=== PATIENT | male | born 1955 | race American Indian/Alaskan Native ===

== ENCOUNTER 2017-04-17 18:21 | Inpatient (IN) | payer MEDICAID ==
[2017-04-17 18:26] VITALS: BMI 20.6
--- NOTE | 2017-04-17 19:32 | C.PDOC ---
History Of Present Illness A 62 y/o male with a Hx of heroin abuse for 15 years, comes in for heroin detox. Pt notes his last use was today. Pt denies suicidal or homicidal ideation , fever, chills, nausea, vomiting, or any other complaints. Time Seen by Provider: 04/17/17 19:29 Chief Complaint (Nursing): Substance Abuse History Per: Patient History/Exam Limitations: intoxication Onset/Duration Of Symptoms: Hrs Current Symptoms Are (Timing): Still Present Suicide/Self Injury Attempted (Context): None Modifying Factor(s): Other (Heroin) Severity: Mild Associated Symptoms: denies: Suicidal Thoughts, Suicidal Plan Involuntary Hold By: None Recent travel outside of the [place]: No Additional History Per: Patient Past Medical History Reviewed: Historical Data, Nursing Documentation, Vital Signs Vital Signs: Last Vital Signs Temp 98.6 F 04/17/17 18:29 Pulse 68 04/17/17 18:29 Resp 18 04/17/17 18:29 BP 122/86 04/17/17 18:29 Pulse Ox 100 04/17/17 21:10 - Medical History PMH: HTN Denies: Diabetes, Hepatitis, HIV, Seizures, Sexually Transmitted Disease Surgical History: Cholecystectomy Family History: States: Unknown Family Hx - Social History Hx Alcohol Use: No Hx Substance Use: Yes - Immunization History Hx Tetanus Toxoid Vaccination: No Hx Influenza Vaccination: No Hx Pneumococcal Vaccination: No Review Of Systems Except As Marked, All Systems Reviewed And Found Negative. Constitutional: Positive for: Other (Heroin intoxication). Negative for: Fever , Chills Gastrointestinal: Negative for: Nausea, Vomiting Psych: Negative for: Suicidal ideation, Other (Homicidal ideation) Physical Exam - Physical Exam Appears: Non-toxic, No Acute Distress Skin: Warm, Dry Head: Atraumatic, Normacephalic Eye(s): bilateral: Normal Inspection, PERRL, EOMI Oral Mucosa: Moist Throat: Normal, No Exudate Neck: Supple Chest: Symmetrical Cardiovascular: Rhythm Regular, No Murmur Respiratory: Normal Breath Sounds, No Accessory Muscle Use, No Rales, No Rhonchi , No Wheezing Gastrointestinal/Abdominal: Soft, No Tenderness Neurological/Psych: Oriented x3, Normal Speech, Other (No focal deficit) Gait: Steady ED Course And Treatment - Laboratory Results Result Diagrams: 04/17/17 19:41 04/17/17 19:41 O2 Sat by Pulse Oximetry: 100 (RA) Pulse Ox Interpretation: Normal Medical Decision Making Medical Decision Making: Impression: 62 y/o male here for heroin detox last use today Plans: Blood labs, UA, reassess Disposition Discussed With : Shyanne Ledbetter Doctor Will See Patient In The: Hospital Counseled Patient/Family Regarding: Diagnosis - Disposition Disposition: HOSPITALIZED Disposition Time: 21:09 Condition: STABLE - POA Present On Arrival: None - Clinical Impression Clinical Impression: Moderate opioid use disorder - Scribe Statement The provider has reviewed the documentation as recorded by the Scribe Daysi huynh All medical record entries made by the Nayeliibe were at my direction and personally dictated by me. I have reviewed the chart and agree that the record accurately reflects my personal performance of the history, physical exam, medical decision making, and the department course for this patient. I have also personally directed, reviewed, and agree with the discharge instructions and disposition.
[2017-04-17 19:47] LABS: BASO # 0.1 K/uL (0.0-0.2); EOS # 0.2 K/uL (0.0-0.7); EOS % 3.9 % (0.0-4.0); HEMATOCRIT 37.3 % (35.0-51.0); LYMPH # 1.9 K/uL (1.0-4.3); LYMPH % 36.2 % (20.0-40.0); MEAN CELL VOLUME 85.6 fL (80.0-94.0); MEAN CORPUSCULAR HEMOGLOBIN 28.1 pg (27.0-31.0); MEAN CORPUSCULAR HGB CONC 32.8 g/dL (33.0-37.0); MEAN PLATELET VOLUME 9.1 fL (7.2-11.7); MONO # 0.6 K/uL (0.0-0.8); MONO % 10.5 % (0.0-10.0); RED CELL DISTRIBUTION WIDTH 15.3 % (11.5-14.5); WHITE BLOOD COUNT 5.3 K/uL (4.8-10.8)
[2017-04-17 19:54] LABS: RBC URINE 18 /hpf (0-3); URINE BACTERIA RARE (<OCC); URINE BILIRUBIN NEGATIVE (NEGATIVE); URINE BLOOD NEGATIVE (NEGATIVE); URINE CALCIUM OXALATE CRYSTALS OCC /hpf (<OCC); URINE COLOR Yellow (YELLOW); URINE GLUCOSE (UA) NORMAL (Normal); URINE KETONE NEGATIVE (NEGATIVE); URINE LEUKOCYTE ESTERASE 1+ Leu/uL (Negative); URINE PROTEIN 1+ mg/dL (NEGATIVE); URINE UROBILINOGEN NORMAL mg/dL (0.2-1.0); WBC URINE 32 /hpf (0-5)
[2017-04-17 19:57] LABS: CHLORIDE 95 mmol/L (98-107); POTASSIUM 4.2 mmol/L (3.6-5.2); SODIUM 139 mmol/L (132-148)
[2017-04-17 19:59] LABS: ALB/GLOB RATIO 1.5 (1.0-2.1); ALKALINE PHOSPHATASE 220 U/L (38-126); AST/SGOT 82 U/L (17-59); BILIRUBIN,TOTAL 0.6 mg/dL (0.2-1.3); BLOOD UREA NITROGEN 24 mg/dL (9-20); CARBON DIOXIDE 34 mmol/L (22-30); GFR AFRICAN-AMERICAN > 60; GLUCOSE,RANDOM 165 mg/dL (75-110); TOTAL PROTEIN 8.2 g/dL (6.3-8.3)
[2017-04-17 20:00] LABS: ALCOHOL SERUM < 10 mg/dl (0-10); ALT/SGPT 85 U/L (21-72); CALCIUM 9.6 mg/dl (8.6-10.4)
[2017-04-18] MEDS ORDERED: Aluminum Hydroxide/Magnesium Hydroxide Susp (30 mL) PO PRN (00:51)
--- NOTE | 2017-04-18 12:21 | PCM.PSYCH ---
Initial Psychiatric Evaluation - Initial Psychiatric Evaluation Type of Admission: Voluntary Legal Status: Capacity Chief Complaint (in patient's own words): "I had to stop this" History of Present Illness and Precipitating Events: The patient is seen, chart reviewed and case discussed. This is a 62-year-old -[place] male, single with no child, on disability because of an injury 20 years ago, lives with girlfriend in [place]. The patient reports using 6 bags of heroin intranasally. He started about 20 years ago and used on and off. He was in detox twice but never went to any rehabilitation. He was recently in detox in [facility] in [facility] but signed out AMA after 1 day because he didn't like the program. He took methadone there for 1 day, 25 mg. He says he used Suboxone many years ago from a doctor. He also abuse cocaine and marijuana many years ago, currently clean. He denies alcohol and other drug use but smokes half pack per day cigarettes. He also denies psychiatric symptoms. Past psych history: Denies Family psych history: His brother used marijuana. Medical history: Gallbladder removed. His LFTs are high and he doesn't know if he has hepatitis C. It will be checked Current Medications: Active Medications Generic Name Dose Route Start Last Admin Trade Name Freq PRN Reason Stop Dose Admin Al Hydrox/Mg Hydrox/Simethicone 30 ml 04/18/17 00:51 Maalox 30 Ml PO TID PRN Indigestion / Heartburn Clonidine HCl 0.1 mg 04/18/17 00:51 Catapres PO Q8 PRN COWS Score More or Equal to 5 Dicyclomine HCl 10 mg 04/18/17 00:51 Bentyl PO Q6 PRN Muscle spasm Ibuprofen 400 mg 04/18/17 00:51 Motrin Tab PO Q6 PRN Pain, moderate (4-7) Loperamide HCl 2 mg 04/18/17 00:51 Imodium PO Q8 PRN Diarrhea Methadone HCl 20 mg 04/18/17 10:00 04/18/17 10:20 Methadone PO 04/22/17 09:59 20 mg Q24H IGLESIA Administration Taper Ondansetron HCl 2 mg 04/18/17 00:51 Zofran Tab PO Q8H PRN Nausea/Vomiting Pneumococcal Polyvalent Vaccine 0.5 ml 04/21/17 10:00 Pneumovax 23 Vaccine IM 04/21/17 10:01 .ONCE ONE Trazodone HCl 50 mg 04/18/17 00:51 Desyrel PO HS PRN Insomnia Past Psychiatric History - Past Psychiatric History Previous Treatment History: None Pertinent Medical Hx (Current Medical&Sleep Prob, Allergies): Allergies Allergy/AdvReac Type Severity Reaction Status Date / Time No Known Allergies Allergy Verified 04/17/17 18:25 No Known Home Med 04/17/17 Review of Systems - Psychiatric Psychiatric: Abnormal Sleep Pattern, Anxiety. absent: Hallucinations, Homicidal Ideation, Suicidal Ideation Mental Status Examination - Personal Presentation Personal Presentation: Looks older than stated age - Affect Affect: Constricted - Motor Activity Motor Activity: Calm - Reliability in Providing Information Reliability in Providing Information: Good - Speech Speech: Organized - Mood Mood: Neutral - Formal Thought Process Formal Thought Process: No Impairment - Cognitive Functions Orientation: Person, Place, Situation, Time Sensorium: Alert Attention/Concentration: Attentive Estimate of Intelligence: Average Judgement: Intact, as evidence by: Insight regarding need for hospitalization Memory: Recent intact, as evidence by: Ability to recall events of the day, Remote intact, as evidenced by: Abilit to recall sig. life events - Risk Risk: Withdrawal, Diminished functioning - Strength & Assets Inventory Strength & Assets Inventory: Cooperative - Limitations Limitations: Living alone DSM 5 DX - DSM 5 DSM 5 Diagnosis: Opioid withdrawal opioid use d/o - severe Tobacco use d/o - moderate Cocaine use d/o - in remission - Recommended/Plan of Treatment Treatment Recommendations and Plan of Treatment: Methadone detox As needed meds Support and psychoed Mi and CBT Attend groups and activities Nicotine patch Refer to IOP 33 min Projected ELOS: 4 days Prognosis: good Discharge Plan and Discharge Criteria: No wdw sxs IOP, consider MAT - Smoking Cessation Smoking Cessation Initiated: Yes
--- NOTE | 2017-04-19 15:23 | PCM.PYCHPN ---
Psychiatric Progress Note - Psychiatric Progress Note Patient seen today, length of contact: 15 minutes Patient Chief Complaint: I'm much better with the treatment Problems Identified/Issues Discussed: Patient seen. Chart reviewed. Case discussed with staff. Issues related to illness and treatment were discussed with the patient. Reported compliant with treatment with no adverse affects. Tolerating treatment very well. At the time of evaluation patient was awake alert oriented 3, had no delusions, no auditory or visual hallucinations, no suicidal ideations or homicidal ideations. Patient has UTI, Will start ciprofloxacin for 5 days. Medical Problems: None reported Diagnostic Results: Reviewed DSM 5 Symptoms Update: Some improvement for treatment. Medication Change: No Medical Record Reviewed: Yes Mental Status Examination - Cognitive Function Orientation: Person, Place, Situation, Time Memory: Intact Attention: WNL Concentration: WNL Association: WNL Fund of Knowledge: [facility] Decription of patient's judgement and insights: Fair - Mood Mood: Depressed (Less than before) - Affect Affect: Depressed - Speech Speech: Appropriate - Formal Thought Process Formal Thought Process: No Impairment Psychotic Thoughts and Behaviors: None - Suicidal Ideation Suicidal Ideation: No - Homicidal Ideation Homicidal Ideation: No Goal/Treatment Plan - Goal/Treatment Plan Need for Continued Stay: Remain at risks for inpatient hospitalization, Discharge may exacerbated symptoms, Severe functional impairment Progress Toward Problem(s) and Goals/Treatment Plan: Patient education Supportive therapy Continue treatment as before Wants to go to [place] for follow-up care after discharge from the hospital Estimated Date of D/C: 04/23/17 - Smoking Cessation Smoking Cessation Initiated: No
--- NOTE | 2017-04-20 14:30 | PCM.PYCHPN ---
Psychiatric Progress Note - Psychiatric Progress Note Patient seen today, length of contact: 15 minutes Patient Chief Complaint: I'm much better with the treatment Problems Identified/Issues Discussed: Patient seen. Chart reviewed. Case discussed with staff. Issues related to illness and treatment were discussed with the patient. Reported compliant with treatment with no adverse affects. Tolerating treatment very well. Feeling much better. At the time of evaluation patient was awake alert oriented 3, had no delusions, no auditory or visual hallucinations, no suicidal ideations or homicidal ideations. Medical Problems: None reported Diagnostic Results: Reviewed DSM 5 Symptoms Update: Improving with treatment Medication Change: No Medical Record Reviewed: Yes Mental Status Examination - Cognitive Function Orientation: Person, Place, Situation, Time Memory: Intact Attention: WNL Concentration: WNL Association: WN Fund of Knowledge: [facility] Decription of patient's judgement and insights: Fair - Mood Mood: Neutral - Affect Affect: Other (Appropriate) - Speech Speech: Appropriate - Formal Thought Process Formal Thought Process: No Impairment Psychotic Thoughts and Behaviors: None - Suicidal Ideation Suicidal Ideation: No - Homicidal Ideation Homicidal Ideation: No Goal/Treatment Plan - Goal/Treatment Plan Need for Continued Stay: Remain at risks for inpatient hospitalization, Discharge may exacerbated symptoms, Severe functional impairment Progress Toward Problem(s) and Goals/Treatment Plan: Patient education Supportive therapy Continue treatment as before Wants to go to [place] for follow-up care after discharge from the hospital Estimated Date of D/C: 04/23/17 - Smoking Cessation Smoking Cessation Initiated: Yes
[2017-04-21 06:05] VITALS: RESP 18
[2017-04-21 08:48] VITALS: BP 136/84; PULSE 76; TEMP 98; O2SAT 98
--- NOTE | 2017-04-21 08:50 | PCM.PYCHDC ---
Mental Status Examination - Mental Status Examination Orientation: Person, Place, Situation, Time Memory: Impaired Mood: Anxious Affect: Constricted Speech: Appropriate Attention: WNL Concentration: Poor Association: WNL Fund of Knowledge: WNL Formal Thought Process: No Impairment Suicidal Ideation: No Current Homicidal Ideation?: No Discharge Summary - Discharge Note Reason for Hospitalization: Heroin detox Consultations:: List each consultation separately and include: 1. Reason for request. 2. Findings. 3. Follow-up Summary of Hospital Course include:: 1. Description of specific treatment plan utilized for patients during their course of treatmen. 2. Summarize the time- course for resolution of acute symptoms and/or regressed behaviors. 3. Describe issues identified and worked on during hospitalization. 4. Describe medication utilized. 5. Describe medical problems identified and treated. 6. Reassessment of suicide risk Summary of Hospital Course: The patient is seen, chart reviewed and case discussed. This is a 62-year-old -[place] male, single with no child, on disability because of an injury 20 years ago, lives with girlfriend in [place]. The patient reports using 6 bags of heroin intranasally. He started about 20 years ago and used on and off. He was in detox twice but never went to any rehabilitation. He was recently in detox in [facility] in [facility] but signed out AMA after 1 day because he didn't like the program. He took methadone there for 1 day, 25 mg. He says he used Suboxone many years ago from a doctor. He also abuse cocaine and marijuana many years ago, currently clean. He denies alcohol and other drug use but smokes half pack per day cigarettes. He also denies psychiatric symptoms. Past psych history: Denies Family psych history: His brother used marijuana. Medical history: Gallbladder removed. His LFTs are high and he doesn't know if he has hepatitis C. It will be checked Hospital course: The pt was admitted and started on treatment with psychotherapy, support, psychoeducation and medications. CT and CBT used. The pt attended groups and activities, as well as milieu therapy. All the risks and benefits of medications are discussed and the patient understood and agreed. After care discussed with the patient. Referred to an [facility] - Final Diagnosis (DSM 5) Condition upon Discharge: STABLE DSM 5: Opioid withdrawal opioid use d/o - severe Tobacco use d/o - moderate Cocaine use d/o - in remission Disposition: HOME/ ROUTINE Follow-up Treatment Plan: Continue below medications after discharge. Follow after care plan as discussed at [facility] Use relapse prevention skills Return to ER or call 911 if suicidal, homicidal or symptoms relapse. Stay away from stress, alcohol and drugs. Prescriptions/Medication Reconciliation: Ciprofloxacin [Cipro] 500 mg PO BID #6 tab traZODone [Desyrel] 50 mg PO HS PRN #30 tab PRN Reason: Insomnia
[2017-04-21] MEDS ORDERED: Pneumococcal 23-Valent Vaccine IM ONE (10:00)
== END 2017-04-21 10:25 | disposition home or self-care (01) | DRG 744 ==
LOC: C.ER 18:21 → C.7D 21:10
PROVIDERS: ADMIT Psychiatry & Neurology Psychiatry; ATTEND Psychiatry & Neurology Psychiatry
PROC: HZ52ZZZ Individual Psychotherapy for Substance Abuse Treatment, Cognitive-Behavioral (ICD-10-PCS; principal; 2017-04-17)
PROC: HZ59ZZZ Individual Psychotherapy for Substance Abuse Treatment, Supportive (ICD-10-PCS; 2017-04-17)
PROC: HZ56ZZZ Individual Psychotherapy for Substance Abuse Treatment, Psychoeducation (ICD-10-PCS; 2017-04-17)
PROC: HZ2ZZZZ Detoxification Services for Substance Abuse Treatment (ICD-10-PCS; 2017-04-17)
DX: F11.23 Opioid dependence with withdrawal (principal); N39.0 Urinary tract infection, site not specified; I10 Essential (primary) hypertension; F17.210 Nicotine dependence, cigarettes, uncomplicated; F14.90 Cocaine use, unspecified, uncomplicated